=== PATIENT | male | born 1960 | race African-American/Black ===

== ENCOUNTER 2017-03-04 01:23 | Emergency (ER) | payer BC, OTHER ==
[2017-03-04 02:01] VITALS: BP 136/82; PULSE 80; TEMP 98.1; BMI 22.4
--- NOTE | 2017-03-04 02:56 | PDOC ---
Attending Attestation - HPI HPI: 03/04/17 03:08 The patient is a 56 year old male with significant PMH of HTN and HLD who presents to the emergency department with right foot pain after hitting it against a concrete sidewalk today. The patient's right foot pain is worsened by walking. At presentation, there is hematoma on the big toe but no open wounds. The patient denies any pain to the knee, ankle, or legs. The patient denies denies fever, chills, nausea, and vomit. Allergies: Iodine Past surgical history: None reported. Social history: No reported alcohol, drug or cigarette use. PCP: Dr. Bojorquez - Physicial Exam PE: 03/04/17 03:17 GENERAL: Well developed, well nourished. Awake and alert. No acute distress. HEENT: Normocephalic, atraumatic. PERRLA, EOMI. No conjunctival pallor. Sclera are non- icteric. Moist mucous membranes. Oropharynx is clear. NECK: Supple. Full ROM. No JVD. Carotid pulses 2+ and symmetric, without bruits. No thyromegaly. No lymphadenopathy. CARDIOVASCULAR: Regular rate and rhythm. No murmurs, rubs, or gallops. Distal pulses are 2+ and symmetric. PULMONARY: No evidence of respiratory distress. Lungs clear to auscultation bilaterally. No wheezing, rales or rhonchi. ABDOMINAL: Soft. Non-tender. Non-distended. No rebound or guarding. No organomegaly. Normoactive bowel sounds. MUSCULOSKELETAL Normal range of motion at all joints. No bony deformities or tenderness. No CVA tenderness. EXTREMITIES: (+) Hematoma and warmth on the big right toe. No open wounds. No clubbing. No edema. No calf tenderness. SKIN: Warm and dry. Normal capillary refill. No rashes. No jaundice. NEUROLOGICAL: Alert, awake, appropriate. Cranial nerves 2-12 intact. No deficits to light touch and temperature in face, upper extremities and lower extremities. No motor deficits in the in face, upper extremities and lower extremities. Normoreflexic in the upper and lower extremities. Normal speech. Toes are down- going bilaterally. Gait is normal without ataxia. PSYCHIATRIC: Cooperative. Good eye contact. Appropriate mood and affect. <Janine Skaggs - Last Filed: 03/04/17 03:04> - Resident Resident Name: Tyson Scott - ED Attending Attestation I have performed the following: I have examined & evaluated the patient, The case was reviewed & discussed with the resident, I agree w/resident's findings & plan, Exceptions are as noted - Medical Decision Making 03/04/17 04:45 pt treated and released. <Fabian Irving - Last Filed: 03/04/17 04:46>
--- NOTE | 2017-03-04 03:19 | PDOC ---
History of Present Illness - General Chief Complaint: Pain, Acute Stated Complaint: FOOT PAIN Time Seen by Provider: 03/04/17 02:38 History Source: Patient Exam Limitations: No Limitations - History of Present Illness Occurred: reports: just prior to arrival Severity: Yes: severe Lower Extremity Pain Location: bilateral: 1st toe (and 1st right metatarsal. Most of the pain is on the right.) Method of Injury: Yes: direct blow (patient hit his foot on a concrete step in a parking lot ) Modifying Factors: improves with: immobilization (improves), rest (improves) Lower Ext. Injury Location - Specific Injury Location Hips: bilateral hip: no evidence of injury, normal inspection, normal range of motion, non-tender Legs: bilateral: normal inspection, non-tender, normal range of motion Knees: bilateral no evidence of injury, bilateral normal range of motion, bilateral non-tender, bilateral normal inspection Ankle: bilateral no evidence of injury, bilateral normal inspection, bilateral normal range of motion, bilateral abrasions/laceration, bilateral non-tender Foot: right foot ecchymosis, right foot swelling, bilateral foot soft tissue tenderness, bilateral foot bone tenderness, bilateral foot limited range of motion, bilateral foot pain Extremity Pain Location - Extremity Pain Location Extremity Pain Locations: bilateral: 1st toe Past History - Past Medical History Allergies/Adverse Reactions: Allergies Allergy/AdvReac Type Severity Reaction Status Date / Time Iodinated Contrast- Oral and Allergy Mild Itching Verified 03/04/17 01:51 IV Dye Home Medications: Ambulatory Orders Lisinopril [Prinivil] 10 mg PO DAILY 06/24/14 Anemia: No Asthma: Yes (as a child) Cancer: No Cardiac Disorders: No CVA: No COPD: No CHF: No Dementia: No Diabetes: No GI Disorders: No Disorders: (KIDNEY STONES, MULTIPLE PROCEDURES, SINCE 18 YEARS OF AGE) HTN: Yes Hypercholesterolemia: Yes Liver Disease: No Seizures: No Thyroid Disease: No - Surgical History Abdominal Surgery: Yes (ABD HERNIA (R)) Appendectomy: No Cardiac Surgery: No Cholecystectomy: No Lung Surgery: No Neurologic Surgery: No Orthopedic Surgery: Yes ((L) miniscus repair) - Suicide/Smoking/Psychosocial Hx Smoking Status: Yes Smoking History: Former smoker Have you smoked in the past 12 months: No Number of Cigarettes Smoked Daily: 0 If you are a former smoker, when did you quit?: 25 YRS. Information on smoking cessation initiated: No Hx Alcohol Use: Yes (RARELY) Drug/Substance Use Hx: No Substance Use Type: Alcohol Hx Substance Use Treatment: No Review of Systems - Review of Systems Constitutional: No: Symptoms Reported HEENTM: No: Symptoms Reported Respiratory: No: Symptoms reported Cardiac (ROS): No: Symptoms Reported ABD/GI: No: Symptoms Reported : No: Symptoms Reported Musculoskeletal: No: Symptoms Reported Integumentary: No: Symptoms Reported Neurological: No: Symptoms reported, Tingling Endocrine: No: Symptoms Reported Hematologic/Lymphatic: No: Symptoms Reported All Other Systems: Reviewed and Negative *Physical Exam - Vital Signs Last Vital Signs Temp Pulse Resp BP Pulse Ox 98.1 F 80 18 136/82 98 03/04/17 01:52 03/04/17 01:52 03/04/17 01:52 03/04/17 01:52 03/04/17 01:52 - Physical Exam General Appearance: Yes: Nourished, Appropriately Dressed, Mild Distress HEENT: positive: EOMI, WILLIAN, Normal ENT Inspection Neck: positive: Trachea midline. negative: Tender Respiratory/Chest: positive: Lungs Clear, Normal Breath Sounds. negative: Chest Tender, Respiratory Distress Cardiovascular: positive: Regular Rhythm, Regular Rate, S1, S2 Vascular Pulses: Dorsalis-Pedis (R): 2+, Doralis-Pedis (L): 2+ Gastrointestinal/Abdominal: positive: Normal Bowel Sounds, Flat, Soft. negative : Tender Extremity: positive: Normal Capillary Refill, Tender (tender toes b/l ). negative: Coldness ED Treatment Course - RADIOLOGY Radiology Studies Ordered: Category Date Time Status FOOT-RIGHT [RAD] Stat Radiology 03/04/17 02:53 Ordered Medical Decision Making - Medical Decision Making 03/04/17 05:10 56M presents with injury to right foot over 1st metatarsal. Xrays of both feet doesn't appear to contain acute fractures on preliminary read. Patient given orthopedic shoe and possibly crutches, discharged with recommendation to follow up with primary physician within the next 3 days *DC/Admit/Observation/Transfer Diagnosis at time of Disposition: Right foot injury - Discharge Dispostion Disposition: HOME Admit: No - Referrals Referrals: Onesimo Acevedo MD [Primary Care Provider] - - Patient Instructions Printed Discharge Instructions: DI for Metatarsalgia, DI for Foot Sprain Additional Instructions: Follow up with your primary physician within 2 to 3 days. Please come back to the ED for any new, worsening or concerning symptoms - Post Discharge Activity
== END 2017-03-04 05:22 | disposition home or self-care (01) ==
LOC: JER 01:23
DX: S99.921A Unspecified injury of right foot, initial encounter (principal); W22.09XA Striking against other stationary object, initial encounter; Y93.89 Activity, other specified; Y92.410 Unspecified street and highway as the place of occurrence of the external cause
CPT/HCPCS: 73630-TC-LT; 73630-TC-RT; 99281-25

== ENCOUNTER 2019-03-01 19:42 | Emergency (ER) | payer OTHER ==
[2019-03-01] MEDS ORDERED: KETOROLAC TROMETHAMINE 30 MG/1 ML VIAL IVPUSH ONE (19:47)
--- NOTE | 2019-03-01 19:47 | PDOC ---
Rapid Medical Evaluation Time Seen by Provider: 03/01/19 19:44 Medical Evaluation: Allergies Allergy/AdvReac Type Severity Reaction Status Date / Time Iodinated Contrast Media Allergy Mild Itching Verified 03/04/17 01:51 03/01/19 19:44 HPI: Hx of renal stones feels he has the same today PE: No gross deficits ORDERS: Labs CT Discharge Disposition - Diagnosis Back pain - Referrals - Patient Instructions - Post Discharge Activity
[2019-03-01 19:52] VITALS: BMI 22.4
[2019-03-01] MEDS ORDERED: KETOROLAC TROMETHAMINE 30 MG/1 ML VIAL ONE (20:03)
[2019-03-01 20:55] LABS: BASO % 1.1 % (0-2.0); EOS % 1.3 % (0-4.5); HEMATOCRIT 42.3 % (35.4-49); HEMOGLOBIN 13.8 GM/dL (11.7-16.9); LYMPH % 21.1 % (8-40); MCH 28.2 pg (25.7-33.7); MCHC 32.7 g/dl (32.0-35.9); MEAN CELL VOLUME 86.3 fl (80-96); MEAN PLT VOLUME 8.3 fl (7.5-11.1); MONO % 8.1 % (3.8-10.2); NEUT % 68.4 % (42.8-82.8); PLATELET COUNT 297 K/MM3 (134-434); RDW 14.9 % (11.9-15.9)
[2019-03-01 21:18] LABS: ALBUMIN 3.9 g/dl (3.4-5.0); BILIRUBIN,TOTAL 0.2 mg/dL (0.2-1); BLOOD UREA NITROGEN 20.2 mg/dL (7-18); CALCIUM 9.3 mg/dL (8.5-10.1); CREATININE 1.6 mg/dL (0.55-1.3); POTASSIUM 5.1 mmol/L (3.5-5.1); TOT PROT 7.3 g/dl (6.4-8.2)
[2019-03-01] MEDS ORDERED: SODIUM CHLORIDE 0.9% 1000 ML INFUS.BAG IV ONE (21:43)
[2019-03-01] MEDS ORDERED: morphine CARPU-JECT 4 MG/1 ML DISP.SYRIN IVPUSH ONE (21:43)
[2019-03-01] MEDS ORDERED: morphine SULFATE 4 MG/ML VIAL ONE (22:17)
[2019-03-01 23:57] LABS: URINE APPEARANCE CLEAR; URINE BILIRUBIN NEGATIVE (NEGATIVE); URINE COLOR YELLOW; URINE GLUCOSE (UA) NEGATIVE (NEGATIVE); URINE KETONE NEGATIVE (NEGATIVE); URINE LEUK ESTERASE NEGATIVE (NEGATIVE); URINE NITRITE NEGATIVE (NEGATIVE); URINE PROTEIN NEGATIVE (NEGATIVE); URINE UROBILINOGEN 0.2 mg/dL (0.2-1.0)
[2019-03-02] MEDS ORDERED: SODIUM CHLORIDE 0.9% 1000 ML INFUS.BAG IV ONE (00:32)
[2019-03-02] MEDS ORDERED: diazePAM 5 MG TABLET PO ONE (01:21)
--- NOTE | 2019-03-02 01:38 | PDOC ---
Documentation entered by Cosmo Cervantes SCRIBE, acting as scribe for Sharon Buck MD. Sharon Buck MD: This documentation has been prepared by the Billy wilkins Daniel, SCRIBE, under my direction and personally reviewed by me in its entirety. I confirm that the documentation accurately reflects all work, treatment, procedures, and medical decision making performed by me. History of Present Illness - General Chief Complaint: Back Pain Stated Complaint: PAIN/SACRAL REGION Time Seen by Provider: 03/01/19 19:44 History Source: Patient Exam Limitations: No Limitations - History of Present Illness Initial Comments: 03/02/19 01:22 58-year-old male history of previous renal colic ED complaining of left-sided flank pain. Patient states he has had several kidney stones in the past some of which required lithotripsy and extraction states is very similar state his pain started yesterday denies any worsening or exacerbating factors no fevers chills no hematuria no other urinary complaints. Denies any nausea or vomiting pain is severe Past History - Past Medical History Allergies/Adverse Reactions: Allergies Allergy/AdvReac Type Severity Reaction Status Date / Time Iodinated Contrast Media Allergy Mild Itching Verified 03/04/17 01:51 Home Medications: Ambulatory Orders Lisinopril [Prinivil] 10 mg PO DAILY 06/24/14 Diazepam [Valium] 5 mg PO Q8H PRN #15 tablet MDD 3 03/02/19 Oxycodone HCl/Acetaminophen [Percocet 5-325 mg Tablet] 1 - 2 tab PO Q4H #20 tablet MDD 6 03/02/19 Anemia: No Asthma: Yes (as a child) Cancer: No Cardiac Disorders: No CVA: No COPD: No CHF: No Dementia: No Diabetes: No GI Disorders: No Disorders: (KIDNEY STONES, MULTIPLE PROCEDURES, SINCE 18 YEARS OF AGE) HTN: Yes Hypercholesterolemia: Yes Liver Disease: No Seizures: No Thyroid Disease: No - Surgical History Abdominal Surgery: Yes (ABD HERNIA (R)) Appendectomy: No Cardiac Surgery: No Cholecystectomy: No Lung Surgery: No Neurologic Surgery: No Orthopedic Surgery: Yes ((L) miniscus repair) - Psycho Social/Smoking Cessation Hx Smoking Status: Yes Smoking History: Never smoked Have you smoked in the past 12 months: No Number of Cigarettes Smoked Daily: 0 If you are a former smoker, when did you quit?: 25 YRS. Hx Alcohol Use: Yes (RARELY) Drug/Substance Use Hx: No Substance Use Type: Alcohol Hx Substance Use Treatment: No Review of Systems - Review of Systems Constitutional: No: Chills, Diaphoresis, Fever HEENTM: No: Eye Pain Respiratory: No: Cough, Orthopnea Cardiac (ROS): No: Chest Pain, Edema : No: Burning, Dysuria, Discharge Musculoskeletal: Yes: Back Pain All Other Systems: Reviewed and Negative *Physical Exam - Vital Signs Last Vital Signs Temp Pulse Resp BP Pulse Ox 97.7 F 72 19 118/78 100 03/01/19 20:00 03/01/19 20:00 03/01/19 20:00 03/01/19 20:00 03/01/19 20:00 - Physical Exam Comments: 03/02/19 01:23 Awake alert no acute distress lungs are clear bilaterally heart is regular without murmurs rubs or gallops abdomen is soft there is mild left mid quadrant tenderness and mild left CVA tenderness no midline spinal tenderness. Bilateral lower extremity strength is 5 out of 5 throughout sensation is intact throughout bilateral lower extremities there is no in his seizure skin is warm and dry patient is neurologically intact ED Treatment Course - LABORATORY CBC & Chemistry Diagram: 03/01/19 20:27 03/01/19 20:27 - ADDITIONAL ORDERS Additional order review: 03/01/19 20:27 RBC 4.90 MCV 86.3 MCHC 32.7 RDW 14.9 MPV 8.3 Neutrophils % 68.4 Lymphocytes % 21.1 D Monocytes % 8.1 Eosinophils % 1.3 Basophils % 1.1 - RADIOLOGY Radiology Studies Ordered: Category Date Time Status SPIRAL- RENAL-STONE CT [CT] Stat CT Scan 03/01/19 21:55 Taken - Medications Given in the ED: ED Medications Discontinued Medications Generic Name Dose Route Start Last Admin Trade Name Freq PRN Reason Stop Dose Admin Ketorolac Tromethamine 30 mg 03/01/19 19:47 03/01/19 20:05 Toradol Injection - IVPUSH 03/01/19 19:48 30 mg ONCE ONE Administration Medical Decision Making - Medical Decision Making 03/02/19 01:23 4-year-old male history of previous renal colic here today complaining of low back pain. On my exam he has a normal neurological exam differential includes muscle skeletal back pain. Renal colic, UTI pyelo-. Plan CT abdomen pelvis CT abdomen pelvis was obtained showed multiple renal stones but no ureteral or bladder calculi no hydronephrosis or ureteral dilation. On repeat examination it appears the pain is more musculoskeletal patient has pain with straight leg raise concerning for possible sciatica he is already been given anti- inflammatories and morphine will at this time give muscle relaxers and Percocet patient is also noted to have a mild mild acute renal insufficiency with a creatinine 1.6 he will be hydrated with 2 L repeat BMP will be sent and is pending likely to be discharged home with prescription for Percocet and Valium Discharge - Discharge Information Problems reviewed: Yes Clinical Impression/Diagnosis: Back pain Disposition: HOME - Admission No - Additional Discharge Information Prescriptions: Diazepam [Valium] 5 mg PO Q8H PRN #15 tablet MDD 3 PRN Reason: Pain Oxycodone HCl/Acetaminophen [Percocet 5-325 mg Tablet] 1 - 2 tab PO Q4H #20 tablet MDD 6 - Follow up/Referral Referrals: Onesimo Acevedo MD [Primary Care Provider] - - Patient Discharge Instructions Patient Printed Discharge Instructions: Sciatica Additional Instructions: you can take percocet one every 6 hours sa needed for pain. you can also take valium 5 mg every 8 hrs as needed for muscle spasm. return for any fevers, numbness, weaknesss or any concerns. you should folllow up with your primary doctor. - Post Discharge Activity
[2019-03-02] MEDS ORDERED: diazePAM 5 MG TABLET ONE (01:59)
[2019-03-02 03:57] VITALS: BP 110/68; PULSE 70; TEMP 97.5
== END 2019-03-02 03:30 | disposition home or self-care (01) ==
LOC: JER 19:42
PROC: 3E0333Z Introduction of Anti-inflammatory into Peripheral Vein, Percutaneous Approach (ICD-10-PCS; principal; 2019-03-01)
PROC: 3E033NZ Introduction of Analgesics, Hypnotics, Sedatives into Peripheral Vein, Percutaneous Approach (ICD-10-PCS; 2019-03-01)
DX: M54.9 Dorsalgia, unspecified (principal); Z91.048 Other nonmedicinal substance allergy status
CPT/HCPCS: 36415; 74176-TC; 80053; 81003; 85025; 87086; 99283-25; J7030